=== PATIENT | male | born 1975 | race American Indian/Alaskan Native ===

== ENCOUNTER 2018-01-31 22:15 | Emergency (ER) | payer SELFPAY ==
[2018-01-31 22:22] VITALS: BP 168/122
== END 2018-01-31 22:22 | disposition left against medical advice (07) ==
LOC: ED 22:15
DX: Z01.30 Encounter for examination of blood pressure without abnormal findings (principal); Z53.21 Procedure and treatment not carried out due to patient leaving prior to being seen by health care provider